=== PATIENT | male | born 1960 | race Caucasian/White ===

== ENCOUNTER 2018-11-21 09:24 | Inpatient (IN) | payer MEDICAID, MEDICARE, OTHER ==
[~2018-11-21] VITALS: Ht 172.7 cm; Wt 98.1 kg
[~2018-11-21 09:24] MED LIST: ATEN25TA PO; CYCL-259 PO; DOCU-131 PO; ENAL20TA PO; HYDR-3240 PO; HYDR25TA6 PO; IBUP-1222 PO; MAGN400T7 PO; METF500T17 PO; TRAM50TA2 PO
--- NOTE | 2018-11-21 09:42 | NUR ---
BIB [facility] AFTER BEING FOUND DOWN AT 0830 BY FRIEND. LAST SEEN AT 1730 LAST NOC. ALTERED ON ARRIVAL OF EMS. NO HX SZ WAS COMBATIVE SHORTLY AFTER [facility] ATTEMPTED TRANSPORT. GIVEN 2 MG VERSED AND 10 MIN LATER GIVEN 1 MG VERSED. 80'S RA. PT RESTING ON GURNEY. NON RESPONSIVE TO VERBAL STIMULI/STERNAL RUB.
[2018-11-21] MEDS ORDERED: NALOXONE 0.4 MG/ML, 1ML ONE (09:45)
--- NOTE | 2018-11-21 09:52 | NUR ---
PT GIVEN NARCAN. NO RESPONSE.
[2018-11-21] MEDS ORDERED: ETOMIDATE 20 MG/10 ML IVPush ONE (10:00)
[2018-11-21] MEDS ORDERED: NALOXONE 0.4 MG/ML, 1ML IVPush ONE (10:00)
[2018-11-21] MEDS ORDERED: SUCCINYLCHOLINE 20 MG/ML, 10ML IVPush ONE (10:00)
[2018-11-21] MEDS ORDERED: SODIUM CHLORIDE 0.9% 1,000ML IVBOLUS ONE ×4 (10:00→15:30)
[2018-11-21] MEDS ORDERED: PLEASE ENTER HEIGHT AND WEIGHT MC SCH (10:00)
[2018-11-21] MEDS ORDERED: PROPOFOL 100 ML IV PRN (10:08)
[2018-11-21] MEDS ORDERED: MIDAZOLAM 1 MG/ML, 2ML ONE (10:10)
[2018-11-21] MEDS ORDERED: OXYMETAZOLINE NASAL SPRAY 0.05%, 15ML ONE (10:13)
--- NOTE | 2018-11-21 10:15 | NUR ---
PT INTUBATED W/ 8.0 TUBE AND IS AT 24 AT THE LIP.
[2018-11-21 10:21] LABS: BASOPHILS # (AUTO) 0.01 x10^3/uL (0-0.1); BASOPHILS % (AUTO) 0 % (0-1); EOSINOPHILS # (AUTO) 0.01 x10^3/uL (0-0.4); EOSINOPHILS % (AUTO) 0 % (1-7); LYMPHOCYTES # (AUTO) 0.58 x10^3/uL (1-3.4); LYMPHOCYTES % (AUTO) 6 % (22-44); MD NO; MEAN CORPUSCULAR HEMOGLOBIN 33.4 pg (27.5-34.5); MEAN CORPUSCULAR HGB CONC 33.2 g/dL (33.2-36.2); MEAN CORPUSCULAR VOLUME 100.6 fL (81-97); MEAN PLATELET VOLUME 8.1 fL (7.4-10.4); MONOCYTES # (AUTO) 0.58 x10^3/uL (0.2-0.8); MONOCYTES % (AUTO) 6 % (2-9); NEUTROPHILS # (AUTO) 8.88 x10^3/uL (1.8-6.8); NEUTROPHILS % (AUTO) 88 % (42-75); PLATELET COUNT 210 x10^3/uL (130-400); RED BLOOD COUNT 3.75 x10^6/uL (4.38-5.82); RED CELL DISTRIBUTION WIDTH 14.7 % (9.4-14.8)
[2018-11-21] MEDS ORDERED: MIDAZOLAM 1 MG/ML, 2ML IVPush ONE ×5 (10:30→13:00)
[2018-11-21] MEDS ORDERED: OXYMETAZOLINE NASAL SPRAY 0.05%, 15ML NAS ONE (10:30)
--- NOTE | 2018-11-21 10:30 | NUR ---
ATTEMPTED TO INSERT NG TUBE. LARGE EPISTAXIS NOTED. NOSE SUCTIONED AND AFRIN GIVEN TO PT. NOSE CLAMPS IN PLACE. UNABLE TO PLACE OG AT THIS TIME.
[2018-11-21 10:32] LABS: INTERNATIONAL NORMALIZED RATIO 1.09 (0.93-1.1); PROTHROMBIN TIME 11.5 Seconds (9.6-11.5)
[2018-11-21 10:34] LABS: ALANINE AMINOTRANSFERASE 74 U/L (12-78); ALBUMIN 3.5 g/dL (3.4-5.0); ANION GAP 18 mmol/L (5-15); CALCIUM 8.1 mg/dL (8.5-10.1); CHLORIDE 87 mmol/L (98-107)
[2018-11-21 10:36] LABS: SALICYLATE LEVEL < 1.7 mg/dL (2.8-20.0)
[2018-11-21 10:48] LABS: ALKALINE PHOSPHATASE 71 U/L (45-117); BILIRUBIN,TOTAL 1.3 mg/dL (0.2-1.0); CREATINE KINASE, TOTAL 2541 U/L (39-308); CREATININE 2.46 mg/dL (0.7-1.3); TOTAL PROTEIN 6.1 g/dL (6.4-8.2)
[2018-11-21 10:51] LABS: ACETAMINOPHEN < 2 mcg/mL (10-30)
[2018-11-21] MEDS: NOREPINEPHRINE 4 MG in SODIUM CHLORIDE 0.9% 246 ML IV PRN ×2 (10:53→13:58)
[2018-11-21] MEDS ORDERED: ATROPINE SYRINGE 0.1 MG/ML, 10ML ONE (10:58)
--- NOTE | 2018-11-21 11:04 | NUR ---
CT NOTIFIED OF STAT CT NEED NOW THAT PT IS STABILIZED. RT AWARE OF NEED WELL.
--- NOTE | 2018-11-21 11:40 | NUR ---
SENIOR RD ENGINEER: PT TRANSPORTED TO AND FROM CT IN NAD ON MONITOR W/ RN & RT. MD RANKIN DISCUSSING PLAN OF CARE W/ PT'S DAUGHTER & UNCLE AT THIS TIME, PLANNING FOR INITIATION OF CENTRAL VENOUS LINE ACCESS D/T THE NEED FOR VASOPRESSOR MEDICATIONS.
--- NOTE | 2018-11-21 11:45 | NUR ---
GOPAL ISAACS ATTEMPTED TO PLACE OG WITHOUT SUCCESS. TO ATTEMPT AGAIN SHORTLY.
--- NOTE | 2018-11-21 11:45 | NUR ---
CONDON CATHETER INSERTED. PT JAZMIN WELL.
[2018-11-21] MEDS ORDERED: ATROPINE SYRINGE 0.1 MG/ML, 10ML IVPush PRN (12:00)
[2018-11-21] MEDS ORDERED: ETOMIDATE 40 MG/20 ML ONE (12:00)
[2018-11-21] MEDS ORDERED: PROPOFOL 10 MG/ML, 100ML IV ONE (12:00)
[2018-11-21] MEDS ORDERED: SUCCINYLCHOLINE 20 MG/ML, 10ML ONE (12:00)
[2018-11-21] MEDS ORDERED: MIDAZOLAM 1 MG/ML, 5ML ONE (12:00)
--- NOTE | 2018-11-21 12:06 | NUR ---
CENTRAL LINE INSERTED. PT JAZMIN WELL.
[2018-11-21] MEDS ORDERED: LINEZOLID PMX 600MG/300ML 300 ML IV ONE (12:30)
[2018-11-21] MEDS ORDERED: MEROPENEM 500 MG in SODIUM CHLORIDE 0.9% 100 ML IV ONE (12:30)
[2018-11-21] MEDS ORDERED: MIDAZOLAM 1 MG/ML, 5ML IVPush ONE (12:30)
[2018-11-21 12:42] LABS: TROPONIN I < 0.015 ng/mL (0.000-0.045)
[2018-11-21 12:43] LABS: MICROSCOPIC INDICATED
--- NOTE | 2018-11-21 12:45 | NUR ---
AG, PT'S DAUGHTER STATES PT IS A HEAVY DRINKER AND GOES THROUGH WITHDRAWALS. SHE STATES HE HAS HX OF PRESCRIPTION DRUG ABUSE.
[2018-11-21] MEDS ORDERED: ONDANSETRON 2MG/ML, 2ML IVPush PRN (13:00)
[2018-11-21] MEDS ORDERED: MORPHINE SULFATE 4 MG/ML, 1ML IVPush PRN (13:00)
[2018-11-21] MEDS ORDERED: BISACODYL 10 MG SUPP PR PRN ×2 (13:00→21:00)
[2018-11-21] MEDS ORDERED: POLYETHYLENE GLYCOL 17 GM PACKET PO PRN (13:00)
[2018-11-21] MEDS ORDERED: ENALAPRILAT 1.25 MG/ML, 2ML IVPush PRN (13:00)
[2018-11-21] MEDS: MEROPENEM 500 MG in SODIUM CHLORIDE 0.9% 100 ML IV SCH ×2 (13:00→20:58)
[2018-11-21] MEDS ORDERED: LABETALOL 5MG/ML, 20ML IVPush PRN (13:00)
[2018-11-21] MEDS: ENOXAPARIN 40 MG/0.4 ML SQ SCH (13:00)
--- NOTE | 2018-11-21 13:03 | NUR ---
ALL VS ON PAPER CHART.
[2018-11-21 13:05] LABS: AMPHETAMINE SCREEN, URINE Negative (Negative); BARBITURATE SCREEN, URINE Negative (Negative); BENZODIAZEPINE SCREEN, URINE Positive (Negative); CANNABINOID SCREEN, URINE Negative (Negative); COCAINE SCREEN, URINE Negative (Negative); METHADONE SCREEN, URINE Negative (Negative); OPIATE SCREEN, URINE Negative (Negative)
--- NOTE | 2018-11-21 13:20 | NUR ---
REPORT GIVEN TO WILLIAN MARTINEZ RN. ALL QUESTIONS ANSWERED.
[2018-11-21 13:36] LABS: CULTURE INDICATED? NO
--- NOTE | 2018-11-21 13:39 | NUR ---
PT TRANSPORTED TO CCU W/ THIS RN, REAL ESTATE RENTAL AGENT, AND RT. BELONGINGS (WALLET AND PHONE) GIVEN TO KATARINA LUONG'S DAUGHTER.
[2018-11-21] MEDS: NS + 20MEQ KCL 1,000 ML IV SCH (14:05)
[2018-11-21] MEDS: LINEZOLID PMX 600MG/300ML 300 ML IV SCH (14:06)
[2018-11-21] MEDS ORDERED: NOREPINEPHRINE 4 MG in SODIUM CHLORIDE 0.9% 246 ML IV PRN (15:00)
[2018-11-21 15:19] VITALS: BP 107/64
[2018-11-21] MEDS ORDERED: DEXTROSE 4 GM TAB.CHEW PO PRN (15:30)
[2018-11-21] MEDS ORDERED: DEXTROSE 50%, 50ML SYRINGE IVPush PRN (15:30)
[2018-11-21] MEDS ORDERED: GLUCAGON 1 MG IM PRN (15:30)
[2018-11-21] MEDS ORDERED: LIDOCAINE-MPF 1%, 2ML ENDO PRN (15:30)
[2018-11-21] MEDS ORDERED: FENTANYL PF 100 MCG/2ML IVPush PRN (15:30)
[2018-11-21] MEDS ORDERED: SENNA/DOCUSATE TABLET NG PRN (15:30)
[2018-11-21] MEDS: ALBUTEROL/IPRATROPIUM 2.5MG/0.5MG, 3 ML INLINE SCH ×3 (15:30→23:10)
[2018-11-21] MEDS ORDERED: PHARMACY MAY ADJ FOR RENAL FX MC SCH (15:30)
[2018-11-21] MEDS ORDERED: FAMOTIDINE 20 MG/2 ML IV SCH (16:00)
[2018-11-21] MEDS ORDERED: INSULIN LISPRO 100 UNITS/ML, PEN SQ-INSULIN SCH (16:00)
[2018-11-21 16:18] LABS: TROPONIN I < 0.015 ng/mL (0.000-0.045)
[2018-11-21] MEDS: PROPOFOL 100 ML IV PRN (20:18)
[2018-11-21] MEDS: INSULIN LISPRO 100 UNITS/ML, PEN SQ-INSULIN SCH (20:58)
[2018-11-21] MEDS: SODIUM CHLORIDE FLUSH 10ML SYR IVF SCH (20:58)
[2018-11-21] MEDS ORDERED: FAMOTIDINE 20 MG/2 ML IVPush SCH (21:00)
[2018-11-21] MEDS ORDERED: SENNOSIDES 8.8 MG/5 ML ORAL SOL NG PRN (21:00)
[2018-11-21] MEDS: LORazepam 2 MG/ML, 1ML IVPush PRN (22:02)
[2018-11-21 23:16] LABS: TROPONIN I 0.021 ng/mL (0.000-0.045)
[2018-11-22] MEDS: PROPOFOL 100 ML IV PRN ×4 (00:45→20:46)
[2018-11-22] MEDS: LINEZOLID PMX 600MG/300ML 300 ML IV SCH ×3 (01:21→23:45)
[2018-11-22] MEDS: NS + 20MEQ KCL 1,000 ML IV SCH ×4 (01:23→23:44)
[2018-11-22] MEDS: ALBUTEROL/IPRATROPIUM 2.5MG/0.5MG, 3 ML INLINE SCH ×6 (02:04→22:22)
[2018-11-22] MEDS: INSULIN LISPRO 100 UNITS/ML, PEN SQ-INSULIN SCH ×4 (03:20→21:00)
[2018-11-22 04:00] VITALS: BP 109/55
[2018-11-22] MEDS: MEROPENEM 500 MG in SODIUM CHLORIDE 0.9% 100 ML IV SCH ×2 (05:02→14:08)
[2018-11-22 05:48] LABS: BASOPHILS # (AUTO) 0.01 x10^3/uL (0-0.1); BASOPHILS % (AUTO) 0 % (0-1); EOSINOPHILS # (AUTO) 0.06 x10^3/uL (0-0.4); EOSINOPHILS % (AUTO) 1 % (1-7); LYMPHOCYTES # (AUTO) 0.83 x10^3/uL (1-3.4); LYMPHOCYTES % (AUTO) 9 % (22-44); MD NO; MEAN CORPUSCULAR HEMOGLOBIN 34.1 pg (27.5-34.5); MEAN CORPUSCULAR HGB CONC 34.1 g/dL (33.2-36.2); MEAN CORPUSCULAR VOLUME 99.8 fL (81-97); MEAN PLATELET VOLUME 7.5 fL (7.4-10.4); MONOCYTES # (AUTO) 0.67 x10^3/uL (0.2-0.8); MONOCYTES % (AUTO) 7 % (2-9); NEUTROPHILS # (AUTO) 7.75 x10^3/uL (1.8-6.8); NEUTROPHILS % (AUTO) 83 % (42-75); PLATELET COUNT 202 x10^3/uL (130-400); RED BLOOD COUNT 3.51 x10^6/uL (4.38-5.82); RED CELL DISTRIBUTION WIDTH 14.4 % (9.4-14.8)
[2018-11-22 05:52] LABS: CHLORIDE 99 mmol/L (98-107)
[2018-11-22 06:07] LABS: ALANINE AMINOTRANSFERASE 66 U/L (12-78); ALBUMIN 3.1 g/dL (3.4-5.0); ALKALINE PHOSPHATASE 69 U/L (45-117); ANION GAP 12 mmol/L (5-15); CALCIUM 7.5 mg/dL (8.5-10.1)
[2018-11-22] MEDS: LORazepam 2 MG/ML, 1ML IVPush PRN (06:21)
[2018-11-22] MEDS ORDERED: MAGNESIUM SULFATE PMX 4GM/100M 100 ML IVPB ONE (07:00)
[2018-11-22] MEDS ORDERED: DIAZEPAM 5 MG/ML, 2ML IV SCH (07:30)
[2018-11-22] MEDS ORDERED: LACTULOSE 20 GM/30 ML UDC NG PRN (09:00)
--- NOTE | 2018-11-22 09:55 | NUR ---
TF goal in RD note 11/22 if needed
[2018-11-22] MEDS: SENNA/DOCUSATE TABLET PO SCH (10:24)
[2018-11-22] MEDS: POTASSIUM CHLORIDE 10% 40 MEQ/30 ML UDC PO SCH ×2 (10:25→21:46)
[2018-11-22] MEDS: MVI ADULT IV SCH ×2 (10:27→11:31)
[2018-11-22] MEDS: FOLIC ACID IV SCH ×2 (10:27→11:31)
[2018-11-22] MEDS: [UNRECOGNIZED DRUG - OTHER] IV SCH ×2 (10:27→11:31)
[2018-11-22] MEDS: POTASSIUM CHLORIDE IV SCH ×2 (10:27→11:31)
[2018-11-22] MEDS: SODIUM CHLORIDE FLUSH 10ML SYR IVF SCH ×2 (10:28→21:45)
[2018-11-22] MEDS: DIAZEPAM 5 MG/ML, 10ML VIAL IV SCH ×4 (11:33→23:44)
[2018-11-22] MEDS ORDERED: SODIUM PHOSPHATE 20 MMOL in SODIUM CHLORIDE 0.9% 500 ML IV ONE (12:00)
[2018-11-22] MEDS ORDERED: THIAMINE 200 MG in SODIUM CHLORIDE 0.9% 50 ML IV ONE (12:30)
[2018-11-22] MEDS: ENOXAPARIN 40 MG/0.4 ML SQ SCH (12:53)
[2018-11-22] MEDS: FAMOTIDINE 20 MG/2 ML IV SCH (15:43)
[2018-11-22] MEDS: MEROPENEM 1 GM in SODIUM CHLORIDE 0.9% 100 ML IV SCH (20:31)
[2018-11-23] MEDS: PROPOFOL 100 ML IV PRN (01:31)
[2018-11-23] MEDS: INSULIN LISPRO 100 UNITS/ML, PEN SQ-INSULIN SCH ×4 (03:01→21:42)
[2018-11-23] MEDS: ALBUTEROL/IPRATROPIUM 2.5MG/0.5MG, 3 ML INLINE SCH ×6 (03:30→23:19)
[2018-11-23] MEDS: DIAZEPAM 5 MG/ML, 10ML VIAL IV SCH ×5 (03:38→21:34)
[2018-11-23] MEDS: FAMOTIDINE 20 MG/2 ML IV SCH ×2 (03:38→17:20)
[2018-11-23] MEDS: MEROPENEM 1 GM in SODIUM CHLORIDE 0.9% 100 ML IV SCH ×3 (03:40→20:12)
[2018-11-23 04:09] LABS: BASOPHILS # (AUTO) 0.01 x10^3/uL (0-0.1); BASOPHILS % (AUTO) 0 % (0-1); EOSINOPHILS # (AUTO) 0.04 x10^3/uL (0-0.4); EOSINOPHILS % (AUTO) 1 % (1-7); LYMPHOCYTES # (AUTO) 0.88 x10^3/uL (1-3.4); LYMPHOCYTES % (AUTO) 21 % (22-44); MD NO; MEAN CORPUSCULAR HGB CONC 34.9 g/dL (33.2-36.2); MEAN CORPUSCULAR VOLUME 100.4 fL (81-97); MONOCYTES % (AUTO) 9 % (2-9); NEUTROPHILS # (AUTO) 2.97 x10^3/uL (1.8-6.8); NEUTROPHILS % (AUTO) 69 % (42-75); PLATELET COUNT 130 x10^3/uL (130-400); RED BLOOD COUNT 2.46 x10^6/uL (4.38-5.82); RED CELL DISTRIBUTION WIDTH 14.5 % (9.4-14.8)
[2018-11-23 04:13] LABS: ANION GAP 5 mmol/L (5-15); CHLORIDE 115 mmol/L (98-107); CREATININE 0.75 mg/dL (0.7-1.3)
[2018-11-23 04:42] LABS: CALCIUM 5.7 mg/dL (8.5-10.1)
[2018-11-23 04:43] VITALS: BP 129/76
[2018-11-23] MEDS ORDERED: CALCIUM CHLORIDE 13.6 MEQ in SODIUM CHLORIDE 0.9% 100 ML IV ONE (07:30)
[2018-11-23] MEDS ORDERED: MAGNESIUM SULFATE PMX 4GM/100M 100 ML IVPB ONE (07:30)
[2018-11-23] MEDS ORDERED: DEXMEDETOMIDINE 1,000 MCG in SODIUM CHLORIDE 0.9% 240 ML IV PRN (08:00)
[2018-11-23] MEDS ORDERED: ERGOCALCIFEROL 50,000 UNIT CAPSULE PO SCH (12:00)
[2018-11-23] MEDS: CIPROFLOXACIN OPHTH SOLN 0.3%, 5ML EACHEYE SCH ×2 (13:07→21:34)
[2018-11-23] MEDS: SODIUM CHLORIDE FLUSH 10ML SYR IVF SCH ×2 (13:08→21:35)
[2018-11-23] MEDS: SENNA/DOCUSATE TABLET PO SCH (13:40)
[2018-11-23] MEDS: AMPICILLIN/SULBACTAM 3 GM in SODIUM CHLORIDE 0.9% 100 ML IV SCH ×2 (13:40→21:34)
[2018-11-23] MEDS: ENOXAPARIN 40 MG/0.4 ML SQ SCH (17:20)
[2018-11-23] MEDS: NS + 20MEQ KCL 1,000 ML IV SCH ×2 (20:13→23:00)
[2018-11-24] MEDS: DIAZEPAM 5 MG/ML, 10ML VIAL IV SCH ×6 (00:46→21:39)
[2018-11-24] MEDS: ALBUTEROL/IPRATROPIUM 2.5MG/0.5MG, 3 ML INLINE SCH (02:43)
[2018-11-24 03:23] LABS: BASOPHILS # (AUTO) 0.01 x10^3/uL (0-0.1); BASOPHILS % (AUTO) 0 % (0-1); EOSINOPHILS # (AUTO) 0.15 x10^3/uL (0-0.4); EOSINOPHILS % (AUTO) 3 % (1-7); LYMPHOCYTES # (AUTO) 0.84 x10^3/uL (1-3.4); LYMPHOCYTES % (AUTO) 19 % (22-44); MD NO; MEAN CORPUSCULAR HEMOGLOBIN 34.8 pg (27.5-34.5); MEAN CORPUSCULAR HGB CONC 34.7 g/dL (33.2-36.2); MEAN CORPUSCULAR VOLUME 100.2 fL (81-97); MEAN PLATELET VOLUME 6.7 fL (7.4-10.4); MONOCYTES # (AUTO) 0.38 x10^3/uL (0.2-0.8); MONOCYTES % (AUTO) 8 % (2-9); NEUTROPHILS # (AUTO) 3.14 x10^3/uL (1.8-6.8); NEUTROPHILS % (AUTO) 69 % (42-75); PLATELET COUNT 145 x10^3/uL (130-400); RED BLOOD COUNT 3.21 x10^6/uL (4.38-5.82); RED CELL DISTRIBUTION WIDTH 14.5 % (9.4-14.8)
[2018-11-24 03:30] LABS: ANION GAP 4 mmol/L (5-15); CALCIUM 8.4 mg/dL (8.5-10.1); CHLORIDE 103 mmol/L (98-107); CREATININE 0.87 mg/dL (0.7-1.3); TRIGLYCERIDES 173 mg/dL (50-200)
[2018-11-24 04:00] VITALS: BP 156/87
[2018-11-24] MEDS: INSULIN LISPRO 100 UNITS/ML, PEN SQ-INSULIN SCH ×4 (04:17→22:04)
[2018-11-24] MEDS: FAMOTIDINE 20 MG/2 ML IV SCH ×2 (04:17→10:24)
[2018-11-24] MEDS: MEROPENEM 1 GM in SODIUM CHLORIDE 0.9% 100 ML IV SCH (04:17)
[2018-11-24] MEDS: AMPICILLIN/SULBACTAM 3 GM in SODIUM CHLORIDE 0.9% 100 ML IV SCH ×3 (05:17→20:28)
[2018-11-24] MEDS: MVI ADULT IV SCH (06:45)
[2018-11-24] MEDS: [UNRECOGNIZED DRUG - OTHER] IV SCH (06:45)
[2018-11-24] MEDS: FOLIC ACID IV SCH (06:45)
[2018-11-24] MEDS: POTASSIUM CHLORIDE IV SCH (06:45)
[2018-11-24] MEDS ORDERED: MAGNESIUM SULFATE PMX 2GM/50ML 50 ML IV ONE (07:30)
[2018-11-24] MEDS: SENNA/DOCUSATE TABLET PO SCH (09:00)
[2018-11-24] MEDS: INSULIN GLARGINE 100 UNITS/ML, PEN SQ-INSULIN SCH ×2 (09:00→22:04)
[2018-11-24] MEDS: CIPROFLOXACIN OPHTH SOLN 0.3%, 5ML EACHEYE SCH ×2 (11:13→20:29)
[2018-11-24] MEDS: SODIUM CHLORIDE FLUSH 10ML SYR IVF SCH ×2 (11:13→20:35)
[2018-11-24] MEDS: ENOXAPARIN 40 MG/0.4 ML SQ SCH (17:31)
[2018-11-24] MEDS: NS + 20MEQ KCL 1,000 ML IV SCH (20:28)
[2018-11-25] MEDS: NS + 20MEQ KCL 1,000 ML IV SCH ×2 (00:59→01:00)
[2018-11-25] MEDS: DIAZEPAM 5 MG/ML, 10ML VIAL IV SCH ×2 (01:32→04:27)
[2018-11-25 04:00] VITALS: BP 150/84
[2018-11-25] MEDS: FAMOTIDINE 20 MG/2 ML IV SCH (04:27)
[2018-11-25] MEDS: AMPICILLIN/SULBACTAM 3 GM in SODIUM CHLORIDE 0.9% 100 ML IV SCH ×3 (04:27→21:25)
[2018-11-25 04:28] LABS: BASOPHILS # (AUTO) 0.05 x10^3/uL (0-0.1); BASOPHILS % (AUTO) 1 % (0-1); EOSINOPHILS # (AUTO) 0.18 x10^3/uL (0-0.4); EOSINOPHILS % (AUTO) 3 % (1-7); LYMPHOCYTES # (AUTO) 0.83 x10^3/uL (1-3.4); LYMPHOCYTES % (AUTO) 16 % (22-44); MD NO; MEAN CORPUSCULAR HEMOGLOBIN 34.4 pg (27.5-34.5); MEAN CORPUSCULAR HGB CONC 34.1 g/dL (33.2-36.2); MEAN CORPUSCULAR VOLUME 100.9 fL (81-97); MEAN PLATELET VOLUME 6.6 fL (7.4-10.4); MONOCYTES # (AUTO) 0.75 x10^3/uL (0.2-0.8); MONOCYTES % (AUTO) 14 % (2-9); NEUTROPHILS # (AUTO) 3.45 x10^3/uL (1.8-6.8); NEUTROPHILS % (AUTO) 66 % (42-75); PLATELET COUNT 168 x10^3/uL (130-400); RED CELL DISTRIBUTION WIDTH 14.1 % (9.4-14.8)
[2018-11-25 04:40] LABS: ANION GAP 6 mmol/L (5-15); CALCIUM 8.5 mg/dL (8.5-10.1); CHLORIDE 103 mmol/L (98-107)
[2018-11-25] MEDS: INSULIN LISPRO 100 UNITS/ML, PEN SQ-INSULIN SCH ×4 (06:52→21:24)
[2018-11-25] MEDS: MVI ADULT IV SCH (06:52)
[2018-11-25] MEDS: [UNRECOGNIZED DRUG - OTHER] IV SCH (06:52)
[2018-11-25] MEDS: POTASSIUM CHLORIDE IV SCH (06:52)
[2018-11-25] MEDS: FOLIC ACID IV SCH (06:52)
[2018-11-25] MEDS: INSULIN GLARGINE 100 UNITS/ML, PEN SQ-INSULIN SCH ×2 (09:00→21:00)
[2018-11-25] MEDS: SENNA/DOCUSATE TABLET PO SCH (09:00)
[2018-11-25] MEDS: SODIUM CHLORIDE FLUSH 10ML SYR IVF SCH ×2 (09:00→21:20)
[2018-11-25] MEDS ORDERED: MAGNESIUM SULFATE PMX 4GM/100M 100 ML IV ONE (09:00)
[2018-11-25 11:17] VITALS: BP 119/72
[2018-11-25] MEDS: FOLIC ACID 1 MG TABLET PO SCH (11:43)
[2018-11-25] MEDS: THIAMINE 100MG TABLET PO SCH (11:43)
[2018-11-25] MEDS: ACETAMINOPHEN 325 MG TABLET PO PRN ×2 (11:43→21:20)
[2018-11-25] MEDS ORDERED: LORazepam 2 MG/ML, 1ML IVPush PRN (13:00)
[2018-11-25] MEDS: CIPROFLOXACIN OPHTH SOLN 0.3%, 5ML EACHEYE SCH ×2 (13:19→21:20)
[2018-11-25] MEDS: ENOXAPARIN 40 MG/0.4 ML SQ SCH (13:19)
[2018-11-25 15:28] VITALS: BP 118/76
[2018-11-25 19:15] VITALS: BP 125/78
[2018-11-25] MEDS: FAMOTIDINE 20 MG TABLET PO SCH (21:20)
[2018-11-26 01:30] VITALS: BP 150/94
[2018-11-26] MEDS: AMPICILLIN/SULBACTAM 3 GM in SODIUM CHLORIDE 0.9% 100 ML IV SCH ×3 (05:01→21:34)
[2018-11-26 05:46] LABS: BASOPHILS # (AUTO) 0.03 x10^3/uL (0-0.1); BASOPHILS % (AUTO) 1 % (0-1); EOSINOPHILS # (AUTO) 0.16 x10^3/uL (0-0.4); EOSINOPHILS % (AUTO) 4 % (1-7); LYMPHOCYTES # (AUTO) 1.13 x10^3/uL (1-3.4); LYMPHOCYTES % (AUTO) 26 % (22-44); MD NO; MEAN CORPUSCULAR HEMOGLOBIN 34.8 pg (27.5-34.5); MEAN CORPUSCULAR HGB CONC 34.5 g/dL (33.2-36.2); MEAN PLATELET VOLUME 6.4 fL (7.4-10.4); MONOCYTES # (AUTO) 0.87 x10^3/uL (0.2-0.8); MONOCYTES % (AUTO) 20 % (2-9); NEUTROPHILS # (AUTO) 2.17 x10^3/uL (1.8-6.8); NEUTROPHILS % (AUTO) 50 % (42-75); PLATELET COUNT 160 x10^3/uL (130-400); RED CELL DISTRIBUTION WIDTH 14.1 % (9.4-14.8)
[2018-11-26 05:53] LABS: CHLORIDE 103 mmol/L (98-107)
[2018-11-26 06:00] LABS: ALANINE AMINOTRANSFERASE 43 U/L (12-78); ALBUMIN 2.9 g/dL (3.4-5.0); ALKALINE PHOSPHATASE 62 U/L (45-117); ANION GAP 6 mmol/L (5-15); BILIRUBIN,TOTAL 1.3 mg/dL (0.2-1.0); CALCIUM 8.5 mg/dL (8.5-10.1); CREATININE 0.89 mg/dL (0.7-1.3); TOTAL PROTEIN 6.1 g/dL (6.4-8.2)
[2018-11-26] MEDS: INSULIN LISPRO 100 UNITS/ML, PEN SQ-INSULIN SCH ×4 (07:00→21:00)
[2018-11-26] MEDS: SODIUM CHLORIDE FLUSH 10ML SYR IVF SCH ×2 (07:24→21:29)
[2018-11-26 07:49] VITALS: BP 134/86
[2018-11-26] MEDS: CIPROFLOXACIN OPHTH SOLN 0.3%, 5ML EACHEYE SCH ×2 (09:22→21:29)
[2018-11-26] MEDS: SENNA/DOCUSATE TABLET PO SCH (09:23)
[2018-11-26] MEDS: THIAMINE 100MG TABLET PO SCH (09:23)
[2018-11-26] MEDS: FAMOTIDINE 20 MG TABLET PO SCH ×2 (09:23→21:29)
[2018-11-26] MEDS: FOLIC ACID 1 MG TABLET PO SCH (09:23)
[2018-11-26] MEDS: INSULIN GLARGINE 100 UNITS/ML, PEN SQ-INSULIN SCH ×2 (10:29→21:34)
[2018-11-26] MEDS: ENOXAPARIN 40 MG/0.4 ML SQ SCH (11:54)
[2018-11-26 13:30] VITALS: BP 133/85
[2018-11-26 18:39] VITALS: BP 137/88
[2018-11-27 03:58] VITALS: BP 136/81
[2018-11-27] MEDS: AMPICILLIN/SULBACTAM 3 GM in SODIUM CHLORIDE 0.9% 100 ML IV SCH ×2 (04:40→13:09)
[2018-11-27 05:21] LABS: ANION GAP 7 mmol/L (5-15); CALCIUM 8.7 mg/dL (8.5-10.1); CHLORIDE 105 mmol/L (98-107); CREATININE 0.95 mg/dL (0.7-1.3)
[2018-11-27 05:23] LABS: MEAN CORPUSCULAR VOLUME 99.9 fL (81-97); RED BLOOD COUNT 3.08 x10^6/uL (4.38-5.82); RED CELL DISTRIBUTION WIDTH 14.1 % (9.4-14.8)
[2018-11-27 06:57] LABS: BASOPHILS # (AUTO) 0.01 x10^3/uL (0-0.1); BASOPHILS % (AUTO) 0 % (0-1); EOSINOPHILS # (AUTO) 0.13 x10^3/uL (0-0.4); EOSINOPHILS % (AUTO) 3 % (1-7); LYMPHOCYTES # (AUTO) 0.94 x10^3/uL (1-3.4); LYMPHOCYTES % (AUTO) 20 % (22-44); MD SCAN; MEAN PLATELET VOLUME 6.7 fL (7.4-10.4); MONOCYTES # (AUTO) 0.77 x10^3/uL (0.2-0.8); MONOCYTES % (AUTO) 17 % (2-9); NEUTROPHILS # (AUTO) 2.82 x10^3/uL (1.8-6.8); NEUTROPHILS % (AUTO) 60 % (42-75); PLATELET COUNT 197 x10^3/uL (130-400)
[2018-11-27] MEDS: INSULIN LISPRO 100 UNITS/ML, PEN SQ-INSULIN SCH ×4 (07:00→21:45)
[2018-11-27 07:15] VITALS: BP 122/78
[2018-11-27] MEDS: CIPROFLOXACIN OPHTH SOLN 0.3%, 5ML EACHEYE SCH ×2 (09:00→21:43)
[2018-11-27] MEDS: FAMOTIDINE 20 MG TABLET PO SCH ×2 (09:00→21:42)
[2018-11-27] MEDS: THIAMINE 100MG TABLET PO SCH (09:00)
[2018-11-27] MEDS: FOLIC ACID 1 MG TABLET PO SCH (09:00)
[2018-11-27] MEDS: INSULIN GLARGINE 100 UNITS/ML, PEN SQ-INSULIN SCH (09:00)
[2018-11-27] MEDS: SODIUM CHLORIDE FLUSH 10ML SYR IVF SCH ×2 (09:00→21:42)
[2018-11-27] MEDS: SENNA/DOCUSATE TABLET PO SCH (09:00)
[2018-11-27] MEDS ORDERED: MAGNESIUM SULFATE PMX 2GM/50ML 50 ML IV ONE (12:30)
[2018-11-27] MEDS ORDERED: FUROSEMIDE 40 MG/4 ML IV ONE (12:30)
[2018-11-27] MEDS: ENOXAPARIN 40 MG/0.4 ML SQ SCH (13:10)
[2018-11-27 13:59] VITALS: BP 128/84
[2018-11-27 19:25] VITALS: BP 109/68
[2018-11-27] MEDS: AMOXICILLIN/CLAV 875-125MG TABLET PO SCH (21:42)
[2018-11-28 00:34] VITALS: BP 113/70
[2018-11-28 04:51] LABS: ANION GAP 6 mmol/L (5-15); CALCIUM 9.2 mg/dL (8.5-10.1); CHLORIDE 103 mmol/L (98-107); CREATININE 1.31 mg/dL (0.7-1.3)
[2018-11-28 04:57] LABS: BASOPHILS # (AUTO) 0.03 x10^3/uL (0-0.1); BASOPHILS % (AUTO) 1 % (0-1); EOSINOPHILS # (AUTO) 0.12 x10^3/uL (0-0.4); EOSINOPHILS % (AUTO) 2 % (1-7); LYMPHOCYTES % (AUTO) 23 % (22-44); MD NO; MEAN CORPUSCULAR HGB CONC 33.8 g/dL (33.2-36.2); MEAN CORPUSCULAR VOLUME 100.5 fL (81-97); MEAN PLATELET VOLUME 6.8 fL (7.4-10.4); MONOCYTES # (AUTO) 0.91 x10^3/uL (0.2-0.8); MONOCYTES % (AUTO) 16 % (2-9); NEUTROPHILS # (AUTO) 3.33 x10^3/uL (1.8-6.8); NEUTROPHILS % (AUTO) 59 % (42-75); PLATELET COUNT 263 x10^3/uL (130-400); RED BLOOD COUNT 3.57 x10^6/uL (4.38-5.82); RED CELL DISTRIBUTION WIDTH 14.5 % (9.4-14.8)
[2018-11-28] MEDS ORDERED: MAGNESIUM SULFATE PMX 2GM/50ML 50 ML IV ONE (07:00)
[2018-11-28] MEDS: INSULIN LISPRO 100 UNITS/ML, PEN SQ-INSULIN SCH ×2 (07:00→11:00)
[2018-11-28 07:47] VITALS: BP 138/85
[2018-11-28] MEDS: CIPROFLOXACIN OPHTH SOLN 0.3%, 5ML EACHEYE SCH (09:00)
[2018-11-28] MEDS: SODIUM CHLORIDE FLUSH 10ML SYR IVF SCH (09:51)
[2018-11-28] MEDS: FOLIC ACID 1 MG TABLET PO SCH (09:51)
[2018-11-28] MEDS: FAMOTIDINE 20 MG TABLET PO SCH (09:51)
[2018-11-28] MEDS: THIAMINE 100MG TABLET PO SCH (09:51)
[2018-11-28] MEDS: SENNA/DOCUSATE TABLET PO SCH (09:51)
[2018-11-28] MEDS: AMOXICILLIN/CLAV 875-125MG TABLET PO SCH (09:52)
[2018-11-28] MEDS: ENOXAPARIN 40 MG/0.4 ML SQ SCH (11:30)
[2018-11-28] MEDS ORDERED: ERGO500017 PO (11:42)
[2018-11-28] MEDS ORDERED: AMOX1TAB12 PO (11:42)
[2018-11-28 12:00] VITALS: BP 135/86
== END 2018-11-28 15:48 | disposition home or self-care (01) | DRG 208 ==
LOC: ED 10:44 → EDIP 12:15 → CCU 13:23 → 3NW 11-25 09:52 → CCU 11-25 09:52 → 3NW 11-25 10:39 → DCLOUNGE 11-28 15:37
PROVIDERS: ADMIT Internal Medicine; ATTEND Internal Medicine
PROC: 5A1945Z Respiratory Ventilation, 24-96 Consecutive Hours (ICD-10-PCS; principal; 2018-11-21)
PROC: 0BH17EZ Insertion of Endotracheal Airway into Trachea, Via Natural or Artificial Opening (ICD-10-PCS; 2018-11-21)
PROC: 0T9B70Z Drainage of Bladder with Drainage Device, Via Natural or Artificial Opening (ICD-10-PCS; 2018-11-21)
DX: J96.00 Acute respiratory failure, unspecified whether with hypoxia or hypercapnia (principal); K85.90 Acute pancreatitis without necrosis or infection, unspecified; G93.41 Metabolic encephalopathy; N17.0 Acute kidney failure with tubular necrosis; J15.211 Pneumonia due to Methicillin susceptible Staphylococcus aureus; F10.239 Alcohol dependence with withdrawal, unspecified; E87.1 Hypo-osmolality and hyponatremia; J98.11 Atelectasis; M62.82 Rhabdomyolysis; R57.9 Shock, unspecified; G93.49 Other encephalopathy; Z99.11 Dependence on respirator [ventilator] status; E55.9 Vitamin D deficiency, unspecified; D53.9 Nutritional anemia, unspecified; I10 Essential (primary) hypertension; E11.42 Type 2 diabetes mellitus with diabetic polyneuropathy; M48.02 Spinal stenosis, cervical region; K76.0 Fatty (change of) liver, not elsewhere classified; F14.10 Cocaine abuse, uncomplicated; F15.10 Other stimulant abuse, uncomplicated; R74.0 Nonspecific elevation of levels of transaminase and lactic acid dehydrogenase [LDH]; E87.6 Hypokalemia; M10.9 Gout, unspecified; R04.0 Epistaxis; T50.2X5A Adverse effect of carbonic-anhydrase inhibitors, benzothiadiazides and other diuretics, initial encounter; Z82.3 Family history of stroke; Z83.3 Family history of diabetes mellitus
CPT/HCPCS: 31500; 36415; 36556; 36600; 51702; 70450; 71045; 80048; 80053; 80307; 80329; 81001; 82140; 82306; 82330; 82550; 82803; 82962; 83605; 83690; 83735; 83970; 84100; 84145; 84443; 84478; 84484; 85025; 85610; 85730; 87040; 87070; 87077; 87081; 87186; 87205; 90656; 93005; 93306; 94002; 94003; 94640; 96361; 96374; 96375; 96376; 99292; G0378; J0295; J1650; J1940; J2020; J2185; J2250; J2310; J2704; J3010; J3360; J3411; J3480; J7620; G0480; J0330; J1815; J2060; J3475; J3490; J7030; J7040; J7050